=== PATIENT | female | born 2000 | race Caucasian/White ===

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

== ENCOUNTER 2020-09-22 12:15 | Emergency (ER) | payer OTHER ==
[2020-09-22 12:29] VITALS: BP 124/72; PULSE 92; TEMP 98.8; BMI 28.3
[2020-09-22 12:36] LABS: HCG,QUALITATIVE URINE Negative
[2020-09-22] MEDS ORDERED: ACETAMINOPHEN 325 MG TABLET (FP) PO ONE (12:46)
[2020-09-22] MEDS ORDERED: IBUPROFEN 600 MG TABLET (FP) PO ONE ×2 (12:46→12:50)
== END 2020-09-22 14:41 | disposition home or self-care (01) ==
LOC: FER 12:15
DX: R10.30 Lower abdominal pain, unspecified (principal)
CPT/HCPCS: 36415; 76830-TC; 81003; 84703; 87491; 87591; 99284-25